=== PATIENT | male | born 1955 | race Caucasian/White ===

== ENCOUNTER 2019-09-23 09:10 | Inpatient (IN) | payer MEDICAID ==
[~2019-09-23] VITALS: Ht 167.6 cm; Wt 104.3 kg
[2019-09-23 09:10] VITALS: BP_SYST 149
--- NOTE | 2019-09-23 09:10 | NUR ---
Placed in room 2 . Placed on nurse monitoring, blood pressure machine and pulse oximeter. To gown for exam. Side rails up. Report given to KEITH Hernandez.
--- NOTE | 2019-09-23 09:20 | NUR ---
pt came to ER for chest pain rates 7/10 throbbing pain does not raidate. Pt looks comfortable at this time, on court monitor, no distress noted.
[2019-09-23] MEDS ORDERED: NACL 0.9% 1,000 ML IV ONE (09:25)
[2019-09-23] MEDS ORDERED: ONDANSETRON HCL 4 MG/2 ML VIAL IVP ONE (09:30)
[2019-09-23] MEDS ORDERED: ASPIRIN 81 MG TAB.CHEW PO ONE (09:30)
[2019-09-23] MEDS ORDERED: NITROGLYCERIN 0.4 MG TAB.SUBL SL ONE (09:30)
[2019-09-23] MEDS ORDERED: MORPHINE 4 MG/ML INJ. SYRINGE IVP ONE (09:30)
--- NOTE | 2019-09-23 09:37 | NUR ---
ER at bedside examining patient.
[2019-09-23 09:55] LABS: BASOPHILS % (AUTO) 0.7 % (0.0-2.0); EOSINOPHILS # (AUTO) 0.1 K/uL (0.0-0.4); EOSINOPHILS % (AUTO) 1.5 % (0.0-4.0); HEMATOCRIT 45.5 % (36-54); HEMOGLOBIN 14.9 g/dL (14.0-18.0); LYMPHOCYTES # (AUTO) 1.2 K/uL (1.0-5.5); LYMPHOCYTES % (AUTO) 17.7 % (20.5-51.5); MEAN CORPUSCULAR HEMOGLOBIN 28 pg (27-31); MEAN CORPUSCULAR HGB CONC 33 % (32-36); MEAN CORPUSCULAR VOLUME 86 fL (79.0-98.0); MONOCYTES # (AUTO) 0.4 K/uL (0.0-1.0); MONOCYTES % (AUTO) 6.5 % (1.7-9.3); NEUTROPHILS % (AUTO) 73.6 % (40.0-70.0); PLATELET COUNT (AUTO) 239 K/uL (130-430); RED BLOOD CELL COUNT(AUTO) 5.33 MIL/uL (4.2-6.2); WHITE BLOOD COUNT (AUTO) 6.8 K/uL (4.8-10.8)
[2019-09-23 10:08] LABS: CALCIUM 9.2 mg/dL (8.4-11.0); CREATININE 1.18 mg/dL (0.55-1.30); POTASSIUM 3.8 mmol/L (3.5-5.1)
[2019-09-23 10:10] LABS: INR 1.1 (0.80-1.20); PROTHROMBIN TIME 10.9 SECS (9.5-12.5)
[2019-09-23 10:11] LABS: ALBUMIN 3.4 g/dL (3.4-4.8); TOTAL BILIRUBIN 1.4 mg/dL (0.0-1.0)
[2019-09-23] MEDS ORDERED: CLIN150C15 PO (10:23)
[2019-09-23] MEDS ORDERED: ACET-2634 PO (10:23)
[2019-09-23] MEDS ORDERED: ASPI-1153 PO (10:23)
[2019-09-23] MEDS ORDERED: GABA-531 PO (10:23)
[2019-09-23] MEDS ORDERED: LIP20 PO (10:23)
[2019-09-23] MEDS ORDERED: LOSA100T3 PO (10:23)
[2019-09-23] MEDS ORDERED: SITA100T11 PO (10:23)
[2019-09-23] MEDS ORDERED: CARV6.2554 PO (10:23)
[2019-09-23] MEDS ORDERED: FURO-149 PO (10:23)
[2019-09-23] MEDS ORDERED: SPIR25TA PO (10:23)
[2019-09-23] MEDS ORDERED: TRAZ-219 PO (10:23)
[2019-09-23] MEDS ORDERED: AMLO5TAB4 PO (10:23)
--- NOTE | 2019-09-23 10:23 | NUR ---
Medication reconciliation completed with information provided by patient. Any prior medication reconciliation on file was reviewed and corrected.
[2019-09-23] MEDS ORDERED: INSULIN REGULAR, HUMAN 10 UNITS/0.1 ML INJ IVP ONE (10:30)
[2019-09-23] MEDS ORDERED: INSU100I26 SQ (10:31)
[2019-09-23] MEDS ORDERED: METF-833 PO (10:32)
[2019-09-23] MEDS ORDERED: METOPROLOL TARTRATE 5 MG/5 ML VIAL IVP ONE (10:45)
[2019-09-23 11:03] LABS: BILIRUBIN,URINE NEGATIVE (NEGATIVE); CLARITY/URINE CLEAR (CLEAR); COLOR,URINE YELLOW (YELLOW); GLUCOSE,URINE 3+ (NEGATIVE); KETONES,URINE NEGATIVE (NEGATIVE); LEUKOCYTE ESTERASE ,URINE NEGATIVE (NEGATIVE); NITRITE, URINE NEGATIVE (NEGATIVE); PH,URINE 5.5 (5.0-8.0); PROTEIN URINE 2+ (NEGATIVE); UROBILINOGEN,URINE 0.2 (0.2-1.0)
[2019-09-23 11:07] LABS: BLOOD, URINE TRACE (NEGATIVE)
[2019-09-23 11:13] LABS: BACTERIA,URINE FEW /HPF (None Seen); MUCUS,URINE 1+ /LPF (None Seen); RBC,URINE 0-3 /HPF (0-3)
--- NOTE | 2019-09-23 12:36 | NUR ---
Patient will be admitted to care of Dr Mcknight. Admitted to Tele unit. Waiting for room assignment. Belongings list completed. Complete and up to date summary report printed. SBAR report to be given at bedside with opportunity for questions.
--- NOTE | 2019-09-23 13:05 | NUR ---
ADMISSION NOTE Received patient from ER via maira, received report from Tone PARKER. Patient admitted with diagnosis of Chest Pain, Acute Coronary Syndrome. Patient oriented to hospital routine, call light, toileting and safety-patient verbalized understanding.
--- NOTE | 2019-09-23 13:06 | NUR ---
CONSULTATION PAGED REASON FOR CONSULTATION:CHEST PAIN WAS CONSULT CALLED?Y PERSON WHO WAS NOTIFIED:THANH CONSULTING PHYSICIAN:KAMERON VALERIO (MERE [employer]NS OIL OPERATOR) ELECT[employer]ODUCTS SALES ENGINEER SPECIALTY:CARDIO [employer]ODU[employer] SALES ENGINEER PHONE NUMBER:[phone] ORDERING PHYSICIAN:SUSANA MANSFIELD
--- NOTE | 2019-09-23 13:10 | NUR ---
[facility] via [facility]. Licensed nurse present. IV present no signs or symptoms of infiltration.
[2019-09-23 13:21] VITALS: BP_SYST 134
[2019-09-23] MEDS ORDERED: SPIRONOLACTONE 25 MG TABLET (ALDACTONE) PO ONE (14:15)
[2019-09-23] MEDS ORDERED: ATORVASTATIN 20 MG TABLET PO ONE (14:15)
[2019-09-23] MEDS ORDERED: FUROSEMIDE 40 MG TABLET PO ONE (14:15)
[2019-09-23] MEDS ORDERED: LOSARTAN POTASSIUM 50 MG TABLET (COZAAR) PO ONE (14:15)
[2019-09-23 14:34] LABS: BARBITURATE, URINE NEGATIVE (NEG <=200); BENZODIAZEPINE, URINE NEGATIVE (NEG <=150); CANNABINOID, URINE NEGATIVE (NEG <=50); COCAINE, URINE NEGATIVE (NEG <=150); METHAMPHETAMINES SCREEN,URINE POSITIVE (NEG <=500); OPIATE, URINE POSITIVE (NEG <=100); PHENCYCLIDINE SCREEN,URINE NEGATIVE (NEG <=25); UR TRICYCLIC ANTIDEPRESSANTS NEGATIVE (NEG <=300); URINE AMPHETAMINE POSITIVE (NEG <=500); URINE METHADONE NEGATIVE (NEG <=200); URINE OXYCODONE SCREEN NEGATIVE (NEG <=100); URINE PROPOXYPHENE SCREEN NEGATIVE (NEG <=300)
[2019-09-23] MEDS: GABAPENTIN 300 MG CAPSULE PO SCH ×2 (14:34→21:00)
[2019-09-23] MEDS ORDERED: DEXTROSE 50% JECT 50 ML DISP.SYRIN IVP PRN (15:30)
[2019-09-23] MEDS: INSULIN REGULAR, HUMAN 100 UNITS/ML, 10 ML VIAL (humuLIN R) SUBCUT PRN ×2 (16:47→21:09)
[2019-09-23 20:00] VITALS: BP_SYST 126
[2019-09-23] MEDS: traZODone HCL 50 MG TABLET (DESYREL) PO SCH (21:01)
[2019-09-23] MEDS: CARVEDILOL 6.25 MG TABLET (COREG) PO SCH (21:01)
[2019-09-23 22:30] VITALS: BP_SYST 115
--- NOTE | 2019-09-23 22:36 | NUR ---
patient recieved asleep,with call light within reach
--- NOTE | 2019-09-23 23:11 | NUR ---
patient ambulated to the bathroom independently and found sitting on the toilet with complaints of leg cramps. cleaned and legs kept dry and and socks applied. assisted back to bed abd made comfortable. vital signs checked and recordedd, placed on bned alarm for safgety and instructed to call .with call light within reachcomplaints of leg cramsp andinability to sleep
--- NOTE | 2019-09-23 23:22 | NUR ---
Dr Mcknight paged as the patient is complaining of leg cramps and pain and requesting for a sleeping medication
--- NOTE | 2019-09-23 23:27 | NUR ---
awaaiting for Dr Mcknight to call.
--- NOTE | 2019-09-23 23:35 | NUR ---
charge nurse informed about the elevated troponin and no notes regarging the result. awasiting for Dr Mcknight to call back and will call the carsiologist as well.
--- NOTE | 2019-09-23 23:47 | NUR ---
Dr Mcknight called and informed the patient complaints of leg cramps and elevated troponion and the patient request for sleeping medication.with orders to call the cardilogist to inform about the eelvated troponion and with orders for baclofen po and ordered
--- NOTE | 2019-09-23 23:59 | NUR ---
Dr Bear called back and informed about the elevated troponin and with no further orders.
[2019-09-24] VITALS (11 sets, daily range): BP systolic 89–131
[2019-09-24] MEDS ORDERED: HYDROcodone/ACETAMIN 5-325 MG TAB (NORCO/ VICODIN) PO PRN
[2019-09-24] MEDS ORDERED: ACETAMINOPHEN 500 MG TABLET PO PRN
[2019-09-24] MEDS ORDERED: ONDANSETRON HCL 4 MG/2 ML VIAL IVP PRN
[2019-09-24] MEDS ORDERED: MORPHINE 2 MG/ML INJ. SYRINGE IVP PRN
[2019-09-24] MEDS ORDERED: HYDROcodone/ACETAMIN 10-325 MG TAB PO PRN
--- NOTE | 2019-09-24 00:24 | NUR ---
critical result troponin 0.346. Dr Rivera to be informed
[2019-09-24] MEDS: BACLOFEN 10 MG TABLET PO PRN ×2 (01:00→10:16)
[2019-09-24] MEDS: LORazepam 2 MG/ML VIAL IVP PRN (01:05)
--- NOTE | 2019-09-24 01:10 | NUR ---
ambulated to the bathroom to void and had leg crampa again. patient asssited back to bed, Dr Rivera called for the elevated critical troponin and the patient legs that has persistent intermittent cramsp
--- NOTE | 2019-09-24 01:17 | NUR ---
Dr Rivera called and informed about the critical troponin and that he patient feet are swollen and painfull. with no further orders,
--- NOTE | 2019-09-24 02:23 | NUR ---
DR Mcknight informed about the patient complaints of pain and spasms to the left lower extremties. noted redness and swelling to the left lower xtremited.with orders and carried out
--- NOTE | 2019-09-24 03:46 | NUR ---
asleep. lorazepam 1 mg ivp given as needed as patient was anxious and unabble to sleep
--- NOTE | 2019-09-24 04:05 | NUR ---
blood sugar checked 98mg/dl patient is asleep but arousable.
--- NOTE | 2019-09-24 04:55 | NUR ---
Dr Mcknight paged as the patient,s bp to 89/56/ lorzepam dose was given prior. with orders and carried out
[2019-09-24] MEDS ORDERED: NACL 0.9% 1,000 ML IV ONE ×2 (05:00→06:00)
[2019-09-24] MEDS: NORMAL SALINE 5 ML DISP.SYRIN IVF SCH ×3 (05:19→22:11)
--- NOTE | 2019-09-24 05:54 | NUR ---
EKG DONE. NSALINE BOLUS CONSUMED AND VITAL SIGNS CHECKED , ASLEEP BUT AROUSABLE.
--- NOTE | 2019-09-24 06:20 | NUR ---
BLOOD SUGAR CHECKED AND RECORDED. PATIENT IS STILL ASLEEP BUT AROUSABLE.NO FURTHER COMPLAINTS PF PAIN.
--- NOTE | 2019-09-24 06:43 | NUR ---
PATIET AWAKE INTERMIITENTLY BUT CLAIMS HE IS HAVING PAIN TO THE LOWER EXTREMITES .MORE ON THE LEFT LEG. WILL CALL DR DAVIS THE PATIENT MIGHT NEED IV FLUIDS. BLOOD SUGAR 90MG /DL
--- NOTE | 2019-09-24 06:59 | NUR ---
AWAITING FOR THE LAB RESULT AND WILL ENDORSE TO THE DAY SHIFT RN TO CALL DR DAVIS. Addendum: 09/24/19 at 0706 by [facility] pastoral counselor ORANCE JUICE OFFERED AND TOOK 1 PACKET. TOLERATED WELL
--- NOTE | 2019-09-24 07:01 | NUR ---
Nutrition Update Hany Scale 18 noted. Pt admitted for Chest pain, Acute Coronary Syndrome Diet: [facility] BMI: 37.1 kg/m2 RD to follow per nutrition care standards.
[2019-09-24 07:06] LABS: BASOPHILS # (AUTO) 0.1 K/uL (0.0-0.2); BASOPHILS % (AUTO) 0.6 % (0.0-2.0); EOSINOPHILS # (AUTO) 0.2 K/uL (0.0-0.4); EOSINOPHILS % (AUTO) 1.7 % (0.0-4.0); HEMOGLOBIN 14.4 g/dL (14.0-18.0); LYMPHOCYTES # (AUTO) 1.4 K/uL (1.0-5.5); LYMPHOCYTES % (AUTO) 14.7 % (20.5-51.5); MEAN CORPUSCULAR HEMOGLOBIN 28 pg (27-31); MEAN CORPUSCULAR HGB CONC 33 % (32-36); MEAN CORPUSCULAR VOLUME 85 fL (79.0-98.0); MONOCYTES # (AUTO) 0.5 K/uL (0.0-1.0); MONOCYTES % (AUTO) 5.9 % (1.7-9.3); NEUTROPHILS # (AUTO) 7.2 K/uL (1.8-7.7); NEUTROPHILS % (AUTO) 77.1 % (40.0-70.0); PLATELET COUNT (AUTO) 233 K/uL (130-430); RED BLOOD CELL COUNT(AUTO) 5.15 MIL/uL (4.2-6.2); RED CELL DISTRIBUTION WIDTH 15.9 % (9.0-15.0); WHITE BLOOD COUNT (AUTO) 9.3 K/uL (4.8-10.8)
[2019-09-24 07:16] LABS: ALBUMIN 2.7 g/dL (3.4-4.8); CALCIUM 8.2 mg/dL (8.4-11.0); CREATININE 1.08 mg/dL (0.55-1.30); POTASSIUM 3.4 mmol/L (3.5-5.1); THYROID STIMULATING HORMONE 1.56 uIu/mL (0.36-3.74); TOTAL BILIRUBIN 1.1 mg/dL (0.0-1.0)
--- NOTE | 2019-09-24 08:00 | NUR ---
initial notes rec patient asleep but arousable to stimuli. ivl on the forearm intact. no infiltration noted. denies pain at this time. resp easy and unlabored. bed to the lowest position and side rails up and locked. call light within reached and knows when to call for assiatance. feet elevated on a pilow. side rails up and locked.
[2019-09-24] MEDS: CARVEDILOL 6.25 MG TABLET (COREG) PO SCH ×2 (09:00→22:10)
--- NOTE | 2019-09-24 10:00 | NUR ---
rounds due meds given at bedside and giorgio well and went back to sleep after. no sob noted. call light within reached.
[2019-09-24] MEDS: SPIRONOLACTONE 25 MG TABLET (ALDACTONE) PO SCH (10:13)
[2019-09-24] MEDS: ASPIRIN 81 MG TABLET(ECOTRIN) PO SCH (10:13)
[2019-09-24] MEDS: amLODIPine BESYLATE 5 MG TABLET PO SCH (10:15)
[2019-09-24] MEDS: ATORVASTATIN 20 MG TABLET PO SCH (10:15)
[2019-09-24] MEDS: GABAPENTIN 300 MG CAPSULE PO SCH ×3 (10:15→22:10)
[2019-09-24] MEDS: LOSARTAN POTASSIUM 50 MG TABLET (COZAAR) PO SCH (10:16)
[2019-09-24] MEDS: CLINDAMYCIN HCL 150 MG CAPSULE PO SCH ×3 (10:17→22:10)
[2019-09-24] MEDS: FUROSEMIDE 40 MG TABLET PO SCH (10:17)
--- NOTE | 2019-09-24 12:30 | NUR ---
rounds no hypo hyperglycemic reaction noted. continue to sleep but arousable when his name is called.
[2019-09-24] MEDS: INSULIN REGULAR, HUMAN 100 UNITS/ML, 10 ML VIAL (humuLIN R) SUBCUT PRN ×3 (12:48→22:13)
--- NOTE | 2019-09-24 17:16 | NUR ---
CONSULTATION PAGED REASON FOR CONSULTATION:CELLULITIS/UTI/PENILE INFECTION WAS CONSULT CALLED?Y PERSON WHO WAS NOTIFIED:MAKENZIE CONSULTING PHYSICIAN:JIGAR LOCKETT PROFILE GRINDER TECHNICIAN SPECIALTY:INFECTIOUS DISEASE PROFILE GRINDER TECHNICIAN PHONE NUMBER:[phone] REQUESTING PHYSICIAN:SUSANA MANSFIELD
[2019-09-24] MEDS ORDERED: CLINDAMYCIN HCL 150 MG CAPSULE ONE (22:05)
[2019-09-24] MEDS: INSULIN GLARGINE 100 UNITS/ML 10 ML VIAL SUBCUT SCH (22:06)
[2019-09-24] MEDS: traZODone HCL 50 MG TABLET (DESYREL) PO SCH (22:11)
[2019-09-25] MEDS: NORMAL SALINE 5 ML DISP.SYRIN IVF SCH ×3 (06:45→22:40)
[2019-09-25] MEDS: INSULIN REGULAR, HUMAN 100 UNITS/ML, 10 ML VIAL (humuLIN R) SUBCUT PRN ×3 (06:53→21:42)
[2019-09-25 07:24] LABS: BASOPHILS % (AUTO) 0.5 % (0.0-2.0); EOSINOPHILS # (AUTO) 0.2 K/uL (0.0-0.4); EOSINOPHILS % (AUTO) 1.9 % (0.0-4.0); HEMATOCRIT 43.4 % (36-54); HEMOGLOBIN 14.4 g/dL (14.0-18.0); LYMPHOCYTES % (AUTO) 12.6 % (20.5-51.5); MEAN CORPUSCULAR HEMOGLOBIN 28 pg (27-31); MEAN CORPUSCULAR HGB CONC 33 % (32-36); MEAN CORPUSCULAR VOLUME 85 fL (79.0-98.0); MONOCYTES # (AUTO) 0.6 K/uL (0.0-1.0); MONOCYTES % (AUTO) 7.4 % (1.7-9.3); NEUTROPHILS # (AUTO) 6.3 K/uL (1.8-7.7); NEUTROPHILS % (AUTO) 77.6 % (40.0-70.0); PLATELET COUNT (AUTO) 258 K/uL (130-430); RED BLOOD CELL COUNT(AUTO) 5.09 MIL/uL (4.2-6.2); WHITE BLOOD COUNT (AUTO) 8.2 K/uL (4.8-10.8)
[2019-09-25 08:00] VITALS: BP_SYST 129
--- NOTE | 2019-09-25 08:00 | NUR ---
initial notes rec patient awake and eating breakfast. ivl on the l forearm intact. no infiltration noted. resp easy and unlabored. bed to the lowest position and side rails up and locked. call light within reached and knows when to call for assistance.
[2019-09-25 08:03] LABS: ANION GAP 4 (5-15); CALCIUM 8.5 mg/dL (8.4-11.0); CHLORIDE 105 mmol/L (98-107); CREATININE 1.02 mg/dL (0.55-1.30); GFR AFRICAN AMERICAN 95 mL/min (>90); GLUCOSE 175 mg/dL (70-99); SODIUM SERUM 139 mmol/L (136-145); UREA NITROGEN, BLOOD 19 mg/dL (8-21)
[2019-09-25 08:12] LABS: ERYTHROCYTE SEDIMENTATION RATE 14 MM/HR (0-15)
[2019-09-25] MEDS: GABAPENTIN 300 MG CAPSULE PO SCH ×3 (09:27→21:27)
[2019-09-25] MEDS: LOSARTAN POTASSIUM 50 MG TABLET (COZAAR) PO SCH (09:27)
[2019-09-25] MEDS: CLINDAMYCIN HCL 150 MG CAPSULE PO SCH ×3 (09:27→21:39)
[2019-09-25] MEDS: FUROSEMIDE 40 MG TABLET PO SCH (09:28)
[2019-09-25] MEDS: ASPIRIN 81 MG TABLET(ECOTRIN) PO SCH (09:40)
[2019-09-25] MEDS: amLODIPine BESYLATE 5 MG TABLET PO SCH (09:40)
[2019-09-25] MEDS: BACLOFEN 10 MG TABLET PO PRN (09:41)
[2019-09-25] MEDS: CARVEDILOL 6.25 MG TABLET (COREG) PO SCH ×2 (09:42→21:27)
[2019-09-25] MEDS: ATORVASTATIN 20 MG TABLET PO SCH (09:42)
[2019-09-25] MEDS: SPIRONOLACTONE 25 MG TABLET (ALDACTONE) PO SCH (09:43)
[2019-09-25] MEDS: LORazepam 2 MG/ML VIAL IVP PRN (11:54)
[2019-09-25 12:20] VITALS: BP_SYST 123
--- NOTE | 2019-09-25 13:44 | NUR ---
WOUND EVALUATION: Late note for 09/25/19 at 1344 secondary to patient care. Wound Consult received from Dr. Jaren Mcknight. Thank you, Dr. Mcknight, for the consult. Patient received in a Charisse Bed with a mattress, awake, alert, and oriented. Patient is unable to turn independently. Hany Score is an 18. Past Medical History: Asthma, Coronary Artery Disease, Diabetes Mellitus, Dyslipidemia, Hypertension, Insomnia, Diabetic Neuropathy. Recent Labs: WBC 8.2, RBC 5.09, hemoglobin 14.4, hematocrit 43.4, BUN 19, creatinine 1.08, GFR 74, glucose 101, POC glucose 307,BNP 575, albumin 2.7. PTT 24.3. PTT 24.3. Microbiology: Blood culture results 2 in progress. Urine culture results positive for Klebsiella pneumonia. Intrinsic factors that delay wound healing: Asthma, Coronary Artery Disease, Diabetes Mellitus, Diabetic Neuropathy. Extrinsic factors that delay wound healing: Decreased mobility. Wound Assessment: 1. Right Mid [place]: Open bulla, present on admission. Wound bed has 100% pink tissue. No odor, no drainage. Bindu-wound has pink tissue and maceration. Surrounding tissue has pink tissue. Wound measures 1.5 cm x 6.0 cm. 2. Left Mid [place]: Open bulla, present on admission. Wound bed has 100% yellow tissue. No odor, scant yellow purulent drainage. Bindu-wound macerated. Surrounding tissue has pink tissue. Wound measures 1.9 cm x 1.7 cm. Closed bulla present medially. Recommend: Cleanse wounds with normal saline. Apply moisture barrier cream to bindu-wounds. Cover with foam dressings. Perform wound care daily, and as needed for dressing soiling or dislodgement. 3. Glans Penis: Glans of uncircumcised penis of uncircumcised penis has bright red erythema with white cheese like substance, present on admission (patient said that it was cream). Mild odor, small serous drainage. bindu-wound intact. Recommend: Pull penile doyle back and cleanse site with normal saline. Pat dry. Wrap alginate rope around glans, then cover with gauze. Wrap with blane wrap, keeping the doyle off of the glans. Perform site care daily, and as needed for dressing soiling or dislodgement. Also recommend: Encourage and assist patient as needed with repositioning every 2 hours with pillow support and off-load pressure areas with pillows for pressure re-distribution. Offload, elevate and float bilateral heels with pillows. Perform skin care and monitor skin integrity Q shift. Use moisture barrier cream on buttocks and other moisture susceptible areas QID and as needed for soiling.
[2019-09-25 16:25] VITALS: BP_SYST 113
[2019-09-25 17:56] LABS: C-REACTIVE PROTEIN QUANT < 0.2 mg/dL (0-0.5)
[2019-09-25 19:40] VITALS: BP_SYST 139
--- NOTE | 2019-09-25 19:40 | NUR ---
INITIAL NOTES PATIENT IS IN BED AND STABLE. NO S/S OF RESPIRATORY DISTRESS NOTED. PATIENT WAS ABLE TO DEMONSTRATE USAGE OF THE CALL LIGHT AT THIS TIME. BED IS LOCKED, ALARMED, AND AT THE LOWEST POSITION. PLAN OF CARE DISCUSSED WITH THE PATIENT. FALL, SAFETY, ASPIRATION, AND RESPIRATORY PRECAUTIONS WILL BE PLACED THROUGHOUT THE SHIFT.
[2019-09-25] MEDS: traZODone HCL 50 MG TABLET (DESYREL) PO SCH (21:26)
--- NOTE | 2019-09-25 21:40 | NUR ---
WOUND CARE REFUSED PATIENT REFUSED WOUND CARE TREATMENTS AT THIS TIME, DESPITE EDUCATIONAL EFFORT. WILL CONTINUE TO EDUCATE. PATIENT IS OTHERWISE STABLE. NO S/S OF RESPIRATORY DISTRESS NOTED. CALL LIGHT IN REACH. WILL CONTINUE TO MONITOR.
[2019-09-25] MEDS: INSULIN GLARGINE 100 UNITS/ML 10 ML VIAL SUBCUT SCH (21:43)
--- NOTE | 2019-09-25 23:40 | NUR ---
ROUNDING PATIENT IS LAYING IN BED AND STABLE. EDUCATED PATIENT ON WOUND CARE; PATIENT REFUSED WOUND CARE AND PICTURES. NO S/S OF RESPIRATORY DISTRESS NOTED. CALL LIGHT IN REACH. BED IS LOCKED, ALARMED, AND AT THE LOWEST POSITION. WILL CONTINUE TO MONITOR.
[2019-09-26 00:10] VITALS: BP_SYST 145
--- NOTE | 2019-09-26 01:23 | NUR ---
ROUNDING PATIENT IS SLEEPING IN BED. NO S/S OF RESPIRATORY DISTRESS NOTED. CALL LIGHT IN REACH. BED IS LOCKED, ALARMED, AND AT THE LOWEST POSITION. WILL CONTINUE TO MONITOR.
--- NOTE | 2019-09-26 04:39 | NUR ---
WOUND CARE WOUND CARE AND PICTURE DONE AT THIS TIME. PATIENT TOLERATED WELL. PROVIDED PATIENT WITH A SANDWICH PER REQUEST. PATIENT REPOSITION FOR COMFORT. PATIENT IS STABLE. NO S/S OF RESPIRATORY DISTRESS NOTED. CALL LIGHT IN REACH. BED IS LOCKED, ALARMED, AND AT THE LOWEST POSITION. WILL CONTINUE TO MONITOR.
[2019-09-26] MEDS: NORMAL SALINE 5 ML DISP.SYRIN IVF SCH ×2 (06:24→14:00)
[2019-09-26] MEDS: INSULIN REGULAR, HUMAN 100 UNITS/ML, 10 ML VIAL (humuLIN R) SUBCUT PRN ×2 (06:30→12:09)
--- NOTE | 2019-09-26 06:39 | NUR ---
CLOSING NOTES PATIENT AMBULATED TO THE DOOR AND BACK. PATIENT TOLERATED WELL. PATIENT IS STABLE. NO S/S OF RESPIRATORY DISTRESS NOTED. CALL LIGHT IN REACH. BED IS LOCKED, ALARMED, AND AT THE LOWEST POSITION. FALL, SAFETY, ASPIRATION, AND RESPIRATORY PRECAUTIONS HAS BEEN PLACED THROUGHOUT THE SHIFT. WILL CONTINUE TO MONITOR UNTIL REPORT IS GIVEN TO AM NURSE BY BEDSIDE.
--- NOTE | 2019-09-26 07:30 | NUR ---
AM Opening note Received report from shift stacker RN. Received pt AAOx4, able to verbalize needs. Pt states no pain, no distress noted at this time.
[2019-09-26 08:00] VITALS: BP_SYST 117
[2019-09-26 08:43] LABS: BASOPHILS % (AUTO) 0.4 % (0.0-2.0); EOSINOPHILS # (AUTO) 0.1 K/uL (0.0-0.4); EOSINOPHILS % (AUTO) 2.1 % (0.0-4.0); HEMATOCRIT 44.4 % (36-54); HEMOGLOBIN 14.7 g/dL (14.0-18.0); LYMPHOCYTES # (AUTO) 1.3 K/uL (1.0-5.5); LYMPHOCYTES % (AUTO) 18.8 % (20.5-51.5); MEAN CORPUSCULAR HEMOGLOBIN 28 pg (27-31); MEAN CORPUSCULAR HGB CONC 33 % (32-36); MEAN CORPUSCULAR VOLUME 85 fL (79.0-98.0); MONOCYTES # (AUTO) 0.5 K/uL (0.0-1.0); MONOCYTES % (AUTO) 7.2 % (1.7-9.3); NEUTROPHILS % (AUTO) 71.5 % (40.0-70.0); PLATELET COUNT (AUTO) 269 K/uL (130-430); RED BLOOD CELL COUNT(AUTO) 5.22 MIL/uL (4.2-6.2); RED CELL DISTRIBUTION WIDTH 15.8 % (9.0-15.0)
[2019-09-26 08:55] LABS: ANION GAP 6 (5-15); C-REACTIVE PROTEIN QUANT < 0.2 mg/dL (0-0.5); CALCIUM 8.8 mg/dL (8.4-11.0); CHLORIDE 100 mmol/L (98-107); CREATININE 1.12 mg/dL (0.55-1.30); GLUCOSE 237 mg/dL (70-99); POTASSIUM 3.6 mmol/L (3.5-5.1); SODIUM SERUM 132 mmol/L (136-145); UREA NITROGEN, BLOOD 17 mg/dL (8-21)
[2019-09-26 09:04] LABS: GFR AFRICAN AMERICAN 85 mL/min (>90)
[2019-09-26] MEDS: GABAPENTIN 300 MG CAPSULE PO SCH (09:37)
[2019-09-26] MEDS: CLINDAMYCIN HCL 150 MG CAPSULE PO SCH ×2 (09:37→15:00)
[2019-09-26] MEDS: amLODIPine BESYLATE 5 MG TABLET PO SCH (09:38)
[2019-09-26] MEDS: CARVEDILOL 6.25 MG TABLET (COREG) PO SCH (09:39)
[2019-09-26] MEDS: ASPIRIN 81 MG TABLET(ECOTRIN) PO SCH (09:39)
[2019-09-26] MEDS: LOSARTAN POTASSIUM 50 MG TABLET (COZAAR) PO SCH (09:40)
[2019-09-26] MEDS: ATORVASTATIN 20 MG TABLET PO SCH (09:40)
[2019-09-26] MEDS: FUROSEMIDE 40 MG TABLET PO SCH (09:41)
[2019-09-26] MEDS: SPIRONOLACTONE 25 MG TABLET (ALDACTONE) PO SCH (09:42)
[2019-09-26 11:21] VITALS: BP_SYST 125
[2019-09-26 11:26] LABS: ERYTHROCYTE SEDIMENTATION RATE 18 MM/HR (0-15)
--- NOTE | 2019-09-26 12:00 | NUR ---
Pt states no pain or distress at this time. Pt is up sitting in chair eating lunch.
[2019-09-26] MEDS ORDERED: BACL10TA PO (13:12)
[2019-09-26] MEDS ORDERED: CLIN150C15 PO (13:12)
[2019-09-26] MEDS ORDERED: AMOX-423 PO ×2 (13:46→13:59)
[2019-09-26] MEDS ORDERED: BENZ68FO TP (13:47)
[2019-09-26] MEDS ORDERED: NEOM28.36 TP (13:59)
[2019-09-26 14:37] VITALS: BP_SYST 117
--- NOTE | 2019-09-26 14:45 | NUR ---
D/C Patient Patient given medication reconciliation form and D/C instructions. Patient verbalized understanding. MD discussed with patient the results and treatment provided. Ambulatory with steady gait for discharge to home. Patient in stable condition, ID band removed. IV catheter removed, tip intact and dressing applied, no active bleeding. Rx of baclofen, augmentin, neosporin given. Patient educated on pain management and skin care. All belongings sent with patient. Patient escorted out via wheelchair and discharge home via taxi.
== END 2019-09-26 14:50 | disposition home or self-care (01) | DRG 420 ==
LOC: SED 09:10 → STU 12:33
PROVIDERS: ADMIT Preventive Medicine Preventive Medicine/Occupational Environmental Medicine; ATTEND Preventive Medicine Preventive Medicine/Occupational Environmental Medicine
DX: E11.00 Type 2 diabetes mellitus with hyperosmolarity without nonketotic hyperglycemic-hyperosmolar coma (NKHHC) (principal); E11.40 Type 2 diabetes mellitus with diabetic neuropathy, unspecified; I42.0 Dilated cardiomyopathy; I50.9 Heart failure, unspecified; I11.0 Hypertensive heart disease with heart failure; N39.0 Urinary tract infection, site not specified; M94.0 Chondrocostal junction syndrome [Tietze]; R07.89 Other chest pain; I25.10 Atherosclerotic heart disease of native coronary artery without angina pectoris; F11.10 Opioid abuse, uncomplicated; F15.10 Other stimulant abuse, uncomplicated; E78.5 Hyperlipidemia, unspecified; F32.9 Major depressive disorder, single episode, unspecified; L03.114 Cellulitis of left upper limb; L03.113 Cellulitis of right upper limb; N48.89 Other specified disorders of penis; G47.00 Insomnia, unspecified; S30.812A Abrasion of penis, initial encounter; L08.89 Other specified local infections of the skin and subcutaneous tissue; E11.65 Type 2 diabetes mellitus with hyperglycemia; J44.9 Chronic obstructive pulmonary disease, unspecified; I42.7 Cardiomyopathy due to drug and external agent; T40.2X5A Adverse effect of other opioids, initial encounter; T43.625A Adverse effect of amphetamines, initial encounter; X58.XXXA Exposure to other specified factors, initial encounter; Y93.89 Activity, other specified; Y99.8 Other external cause status; Z83.3 Family history of diabetes mellitus; Y92.89 Other specified places as the place of occurrence of the external cause; Z82.49 Family history of ischemic heart disease and other diseases of the circulatory system; Z91.14 Patient's other noncompliance with medication regimen; Z79.899 Other long term (current) drug therapy; Z79.82 Long term (current) use of aspirin
CPT/HCPCS: 36415; 71045; 80048; 80053; 80061; 80307; 81000-TC; 82150-TC; 82550-TC; 82962; 83605; 83690-TC; 83880; 84443-TC; 84484; 85025; 85379; 85610-TC; 85651-TC; 85730-TC; 86140; 87040-TC; 87086; 87186-TC; 93005; 93306; 93970; 96361; 96374; 96375; 99285; G0378; J1815; J2060; J2270; J2405; J3490; J7030

== ENCOUNTER 2019-12-23 09:43 | Emergency (ER) | payer MEDICAID ==
[~2019-12-23] VITALS: Ht 170.2 cm; Wt 89.4 kg
[2019-12-23 09:43] VITALS: BP_SYST 150
[~2019-12-23 09:43] MED LIST: ACET-2634 PO; AMLO5TAB4 PO; AMOX-423 PO; ASPI-1153 PO; BACL10TA PO; BENZ68FO TP; CARV6.2554 PO; FURO-149 PO; GABA-531 PO; INSU100I26 SQ; LIP20 PO; LOSA100T3 PO; METF-833 PO; NEOM28.36 TP; SITA100T11 PO; SPIR25TA PO; TRAZ-219 PO
[2019-12-23 11:38] VITALS: BP_SYST 139
== END 2019-12-23 11:38 | disposition home or self-care (01) ==
LOC: SED 09:43
DX: F41.9 Anxiety disorder, unspecified (principal); R06.02 Shortness of breath; L03.90 Cellulitis, unspecified; J45.909 Unspecified asthma, uncomplicated; I11.0 Hypertensive heart disease with heart failure; I50.9 Heart failure, unspecified; E11.9 Type 2 diabetes mellitus without complications; Z79.899 Other long term (current) drug therapy; Z79.82 Long term (current) use of aspirin
CPT/HCPCS: 99283